=== PATIENT | male | born 1940 | race African-American/Black ===

== ENCOUNTER 2019-03-02 03:59 | Emergency (ER) | payer MEDICARE, OTHER ==
[2019-03-02 04:14] VITALS: BP 121/70
--- NOTE | 2019-03-02 04:21 | ED Physician Documentation ---
General Adult - HISTORIAN Historian: patient - HPI Stated Complaint: Constipation Chief Complaint: General Adult Additional Information: Patient presents to ED with a 2 day history of constipation. Patient reports taking MOM, laxatives and stool softeners yesterday with no luck. He is having intermittent left lower crampy abdominal pain. He states he has chronic constipation since his doctor put him on blood pressure medication years ago. He reports a normal volume bowel movement 3 days ago, however, it was hard. He denies blood in stools, dark tarry stools, nausea/vomiting or fever. Onset: days ago (2) Timing: still present Severity: moderate - ROS CONST: denies: fever EYES/ENT: none CVS/RESP: denies: chest pain, shortness of breath GI/: abdominal pain (crampy left lower quadrant) MS/SKIN/LYMPH: denies: none NEURO/PSYCH: denies: headache - PAST HX Past History: hypertension Other History: none Surgeries/Procedures: none Allergies/Adverse Reactions: Allergies Allergy/AdvReac Type Severity Reaction Status Date / Time No Known Allergies Allergy Verified 03/02/19 04:15 Home Medications: Ambulatory Orders Medication Instructions Recorded Amlodipine Besylate 10 mg PO DAILY 08/27/13 Hydrochlorothiazide 25 mg PO DAILY 08/27/13 - SOCIAL HX Smoking History: non-smoker Alcohol Use: none Drug Use: none - FAMILY HX Family History: Yes - VITAL SIGNS Vital Signs: Vital Signs Temp Pulse Resp BP Pulse Ox 98 F 87 14 121/70 97 03/02/19 03:59 03/02/19 03:59 03/02/19 03:59 03/02/19 03:59 03/02/19 03:59 - REVIEWED ASSESSMENTS Nursing Assessment Reviewed: Yes Vitals Reviewed: Yes Progress - Progress Progress: 0558 Patient had bowel movement after saline enema ED Results Lab/Radiology - Orders Orders: ED Orders Category Date Time Status ABDOMEN 1VIEW [RAD] Stat Exams 03/02/19 Ordered General Adult Physical Exam - PHYSICAL EXAM GENERAL APPEARANCE: no distress EENT: BRIAN NECK: supple RESPIRATORY: no resp distress, chest non-tender, breath sounds normal CVS: reg rate & rhythm, heart sounds normal ABDOMEN: soft, increased BS. No: tenderness BACK: normal inspection SKIN: warm/dry EXTREMITIES: non-tender NEURO: oriented X3, mood/affect nml Discharge Clincal Impression: Constipation Qualifiers: Constipation type: drug induced constipation Qualified Code(s): K59.03 - Drug induced constipation Referrals: Primary Doctor,No [REFERRING] - 2 Days Additional Instructions: 1. Drink plenty of fluids to maintain proper hydration. Minimize caffeine, avoid alcohol 2. Take a daily probiotic. 3. Eat at least 5 servings of fruits and vegetables daily. Prunes and prune juice are good examples 4. Follow up with PCP within 1 week. Discuss changing blood pressure medication. 5. Return to ER for new or worsening symptoms. Condition: Stable Decision to Admit: NO Date of Decison to Admit: 03/02/19 Decision Time: 06:38
[2019-03-02] MEDS: BISACODYL 10 MG SUPP.RECT RC ONE (04:46)
--- NOTE | 2019-03-02 06:21 | Diagnostic Imaging Report ---
ALEX BOLAÑOS [facility] [address] [facility].[address] [address] Report Submission Date: Mar 02, 2019 4:38:59 AM CDT Patient Study Name: ADONAY AMARO Date: Mar 02, 2019 4:22:11 AM CDT Modality Type: DX Gender: M Description: ABDOMEN 1VIEW : 44 Institution: [facility] Physician: ALEX BOLAÑOS KUB Clinical history: Constipation Technique ap supine radiograph of the abdomen Findings: A large amount of retained fecal material is present in the colon. No renal calcifications are seen. 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 No abdominal masses identified. Impression: Constipation Electronically signed on Mar 02, 2019 4:38:59 AM CDT by: Rahat ANTONIO
== END 2019-03-02 06:20 | disposition home or self-care (01) ==
LOC: ED 03:59
DX: K59.03 Drug induced constipation (principal); T46.5X5A Adverse effect of other antihypertensive drugs, initial encounter; Y92.009 Unspecified place in unspecified non-institutional (private) residence as the place of occurrence of the external cause
CPT/HCPCS: 74018; 99282; 99283